=== PATIENT | male | born 1965 | race Caucasian/White ===

== ENCOUNTER → 2017-11-05 | Outpatient (CLI) | payer SELFPAY ==
[~2017-11-05] MED LIST: FELDENE10 MG PO; FISH OIL500 MG PO; NAPROSYN500 MG PO; PERCOCET 325 MG1 TA2 PO; ULTRAM 50MG TAB50 MG PO
== END ==
LOC: ZCOL.LAB 09:06
DX: Z01.812 Encounter for preprocedural laboratory examination (principal); Z86.14 Personal history of Methicillin resistant Staphylococcus aureus infection

== ENCOUNTER 2017-11-20 19:49 | Emergency (ER) | payer BC ==
[~2017-11-20] VITALS: Ht 160 cm; Wt 95.5 kg
[2017-11-20 19:52] VITALS: BP 138/80; PULSE 102; TEMP 98.3
== END 2017-11-20 21:58 | disposition home or self-care (01) ==
LOC: COL.ER 19:49
DX: S92.412A Displaced fracture of proximal phalanx of left great toe, initial encounter for closed fracture (principal); L50.9 Urticaria, unspecified; Z87.891 Personal history of nicotine dependence; W50.1XXA Accidental kick by another person, initial encounter; Y92.009 Unspecified place in unspecified non-institutional (private) residence as the place of occurrence of the external cause

== ENCOUNTER → 2018-08-22 | Outpatient (CLI) | payer BC | LOC: COL.RAD 08-15 07:30 | DX: G50.0 Trigeminal neuralgia (principal); J34.89 Other specified disorders of nose and nasal sinuses | CPT/HCPCS: A9585 ==

== ENCOUNTER → 2019-01-13 | Outpatient (CLI) | payer BC | LOC: COL.RAD 15:08 | DX: K57.32 Diverticulitis of large intestine without perforation or abscess without bleeding (principal) | CPT/HCPCS: Q9967 ==